=== PATIENT | female | born 1990 | race Caucasian/White ===

== ENCOUNTER 2022-01-01 18:25 | Emergency (ER) | payer OTHER ==
[2022-01-01 20:05] LABS: HEMOGLOBIN 13.5 gm/dl (12.3-15.3); RED BLOOD COUNT 4.73 M/UL (4.00-5.10); WHITE BLOOD COUNT 10.6 K/UL (4.5-11.0)
[2022-01-01 20:38] LABS: BUN/CREATININE RATIO 12 (0-10)
[2022-01-01] MEDS ORDERED: MACROBID 100 M100 MG PO (21:25)
== END 2022-01-01 21:55 | disposition home or self-care (01) ==
LOC: ER1 18:25
PROVIDERS: Physician Assistant
DX: O20.0 Threatened abortion (principal); O23.41 Unspecified infection of urinary tract in pregnancy, first trimester; N39.0 Urinary tract infection, site not specified; Z3A.12 12 weeks gestation of pregnancy
CPT/HCPCS: 80053; 81001; 83690; 84702; 85025; 86900; 86901; 99284